=== PATIENT | female | born 2000 | race Caucasian/White ===

== ENCOUNTER 2022-11-04 09:30 | Emergency (ER) | payer MEDICAID ==
[~2022-11-04] VITALS: Ht 149.9 cm; Wt 54.0 kg
[2022-11-04] MEDS ORDERED: CYCL5TAB MT (09:43)
[2022-11-04] MEDS ORDERED: IBUP-2029 MT (09:43)
[2022-11-04] MEDS ORDERED: IBUPROFEN 600MG TABLET PO ONE (09:45)
[2022-11-04 10:29] VITALS: BP 122/77
== END 2022-11-04 10:30 | disposition home or self-care (01) ==
LOC: ER 09:39
DX: S16.1XXA Strain of muscle, fascia and tendon at neck level, initial encounter (principal); V49.49XA Driver injured in collision with other motor vehicles in traffic accident, initial encounter; Y93.89 Activity, other specified; Y92.89 Other specified places as the place of occurrence of the external cause; Y99.8 Other external cause status
CPT/HCPCS: 99283